=== PATIENT | female | born 1990 | race Caucasian/White ===

== ENCOUNTER → 2022-06-27 | Outpatient (CLI) | payer SELFPAY | END | disposition home or self-care (01) | LOC: LAB SHORT 11:23 → LAB 11:23 | DX: N92.6 Irregular menstruation, unspecified (principal); N80.9 Endometriosis, unspecified; N39.0 Urinary tract infection, site not specified | CPT/HCPCS: 87086 ==

== ENCOUNTER 2022-12-26 06:06 | Day surgery (SDC) | payer BC ==
[2022-12-26] VITALS (18 sets, daily range): BP systolic 103–135; BP diastolic 62–105
[~2022-12-26] VITALS: Ht 162.6 cm; Wt 76.2 kg
[~2022-12-26 06:06] MED LIST: ALPR.25 PO; Atarax10 MG PO; Cymbalta20 MG PO; SERT50 PO; TRAZ50 PO; YAZ 28 TABLET1 EAC1
--- NOTE | 2022-12-26 07:00 | NUR ---
Ambulatory in Day Surgery History, Chart, Medications and Allergies reviewed before start of procedure. Pre-Op teaching done. Pt verbalizes understanding.
--- NOTE | 2022-12-26 11:52 | NUR ---
ARRVED FROM PACU VIA [place], PT GROGGY AND DROWSY AND SHAKING, LUNGS CLEAR T/O, HRR, HYPOACTIVE BT'S X4, ABD SOFT, ABD LAP INCISIONS C/D/I W/ SKIN GLUE, SKIN W/D, REPORTS HAVING INCISIONAL PAIN AND NAUSEA BUT BETTER NOW THAT SETTLED IN BED, CONT. TO MONITOR FOR ANY CHANGES.
--- NOTE | 2022-12-26 14:15 | NUR ---
REPORTS NAUSEA AND PAIN IS BETTER, AMBULATED TO THE BATHROOM TO VOID, TOLERATED WELL, PT TOLERATING REGULAR FOOD, [facility] [facility], PT NOW RESTING COMFORTABLY IN BED.
--- NOTE | 2022-12-26 16:16 | NUR ---
ASSUMED CARE OF PT RESTING IN BED WITH EYES CLOSED. SPOUSE BEDSIDE.
--- NOTE | 2022-12-26 18:35 | NUR ---
SUMMARY PT NAUSEATED AND PAINFUL SINCE ASSUMING CARE. PT HAS BEEN MEDICATED PER ORDERS FOR NAUSEA AND PAIN. RESTING WITH LIGHTS OFF. CALL LIGHT IN REACH.
--- NOTE | 2022-12-26 20:25 | NUR ---
ANXIETY, N/V: PT REP INCREASING ANXIETY. HAS CONTINUED N/V, IS UNABLE YAW PO MEDS OR INTAKE. DR BLUNT NOTIFIED, NEW ORDERS REVIEWED.
[2022-12-27 04:43] LABS: BASOPHILS ABSOLUTE AUTO 0.01 K/mm3 (0.00-0.23); BASOPHILS PERCENT AUTO 0 % (0-2); EOSINOPHILS ABSOLUTE AUTO 0.01 K/mm3 (0.00-0.68); EOSINOPHILS PERCENT AUTO 0 % (0-6); Hemoglobin 10.3 g/dL (11.5-16.0); IMMATURE GRAN ABSOLUTE AUTO 0.02 K/mm3 (0.00-0.10); IMMATURE GRAN PERCENT AUTO 0 % (0-1); LYMPHOCYTES ABSOLUTE AUTO 1.39 K/mm3 (0.84-5.20); LYMPHOCYTES PERCENT AUTO 18 % (21-46); MONOCYTES ABSOLUTE AUTO 0.94 K/mm3 (0.16-1.47); MONOCYTES PERCENT AUTO 12 % (4-13); Mean Corpuscular HGB 30.3 pg (26.0-34.0); Mean Corpuscular HGB Conc 34.3 g/dL (31.5-36.5); Mean Corpuscular Volume 88 fL (80-100); Mean Platelet Volume 9.2 fL (9.1-12.4); NEUTROPHILS PERCENT AUTO 69 % (41-73); Platelet Count 213 K/mm3 (150-400); RDW Coefficient Variation 12.3 % (11.7-14.2); RDW Standard Deviation 39.6 fL (35.1-46.3); White Blood Cell Count 7.57 K/mm3 (4.00-11.30)
[2022-12-27 06:19] VITALS: BP 107/71
--- NOTE | 2022-12-27 07:19 | NUR ---
POD 1 S/P LAP HYSTER. PT VSS T/O NIGHT. INCISIONS CDI. PT HAD SEVERAL EPISODES OF N/V, MEDICATED PER EMAR, PT REP IS SOMEWHAT IMPROVED THIS AM, DENIED PASSING FLATUS. PAIN MGD PER EMAR. PT REP FEELING ANXIOUS FOR MUCH OF NIGHT, DECLINED NEED FOR PRN MEDS. PT UP INDEP, IS VOIDING URINE W/O DIFFICULTY, ONLY SCANT LIGHT SS VAGINAL SPOTTING. PLAN TO D/C HOME TODAY.
[2022-12-27 07:22] VITALS: BP 107/67
--- NOTE | 2022-12-27 10:34 | NUR ---
DC INSTRUCTIONS GIVEN, VERBALIZED UNDERSTANDING.
== END 2022-12-27 10:30 | disposition home or self-care (01) ==
LOC: ORSCMMR 06:06 → ORD 07:30 → ORSCMMR 07:30 → ORD 09:15 → SURS 11:11 → ORSCMMR 12-27 10:30
PROVIDERS: Obstetrics & Gynecology
PROC: 0UT74ZZ Resection of Bilateral Fallopian Tubes, Percutaneous Endoscopic Approach (ICD-10-PCS; principal; 2022-12-26 07:30)
PROC: 0UT94ZZ Resection of Uterus, Percutaneous Endoscopic Approach (ICD-10-PCS; principal; 2022-12-26 07:30)
PROC: 8E0W4CZ Robotic Assisted Procedure of Trunk Region, Percutaneous Endoscopic Approach (ICD-10-PCS; principal; 2022-12-26 07:30)
DX: N80.01 Superficial endometriosis of the uterus (principal); N93.9 Abnormal uterine and vaginal bleeding, unspecified; J45.909 Unspecified asthma, uncomplicated; F41.9 Anxiety disorder, unspecified; F32.A Depression, unspecified; Z79.899 Other long term (current) drug therapy
CPT/HCPCS: 58571; S2900; 36415; 85025; 86850; 86900; 86901; 88307; 94762; A9270; J0690; J0780; J1170; J1885; J2250; J2371; J2405; J2704; J2765; J3010; J7120

== ENCOUNTER → 2023-01-10 | Outpatient (CLI) | payer BC ==
[2023-01-10 16:17] LABS: Source, Urine Clean Catch
[2023-01-10 18:16] LABS: Appearance, Urine Clear (Clear); Bilirubin, Urine Neg (Neg); Blood, Urine Neg (Neg); Color, Urine Yellow (P-Yellow); Glucose Qualitative, Urine Neg (Neg); Ketones, Urine Neg (Neg); Leukocyte Esterase, Urine Neg (Neg); Nitrite, Urine Neg (Neg); Protein, Urine Neg (Neg); Specific Gravity, Urine 1.025 (1.003-1.022); Urobilinogen, Urine NORM (Normal)
== END ==
LOC: LAB SHORT 16:11 → LAB 16:11
PROVIDERS: Obstetrics & Gynecology
DX: R30.0 Dysuria (principal)
CPT/HCPCS: 81003

== ENCOUNTER 2023-10-03 07:22 | Emergency (ER) | payer OTHER ==
[~2023-10-03] VITALS: Ht 160 cm; Wt 68.0 kg
[2023-10-03 09:30] VITALS: BP 118/78
== END 2023-10-03 10:05 | disposition home or self-care (01) ==
LOC: ER 07:22
DX: N83.01 Follicular cyst of right ovary (principal); Z79.899 Other long term (current) drug therapy; Z88.0 Allergy status to penicillin; Z88.1 Allergy status to other antibiotic agents; Z88.2 Allergy status to sulfonamides; Z88.6 Allergy status to analgesic agent; Z88.8 Allergy status to other drugs, medicaments and biological substances